=== PATIENT | female | born 1995 | race Caucasian/White ===

== ENCOUNTER 2016-03-31 10:27 | Emergency (ER) | payer SELFPAY ==
[2016-03-31 11:34] LABS: APPEARANCE HAZY (CLEAR); BACTERIA MODERATE /hpf (NONE SEEN); BILIRUBIN NEGATIVE (NEGATIVE); COLOR YELLOW (YELLOW); GLUCOSE NEGATIVE (NEGATIVE); KETONE NEGATIVE (NEGATIVE); LEUKOCYTE ESTERASE TRACE (NEGATIVE); MUCUS <1+ /lpf (NONE SEEN); NITRITE NEGATIVE (NEGATIVE); PROTEIN NEGATIVE (NEGATIVE); UROBILINOGEN NORMAL (NORMAL); WHITE CELLS - URINE RARE /hpf (0-5)
[2016-03-31 11:39] LABS: HCG URINE NEGATIVE (NEGATIVE)
== END 2016-03-31 12:41 | disposition home or self-care (01) ==
LOC: D.ER 10:27
PROVIDERS: Emergency Medicine
DX: N76.0 Acute vaginitis (principal)

== ENCOUNTER 2017-07-25 13:36 | Emergency (ER) | payer OTHER ==
[2017-07-25 14:21] LABS: HCG SERUM NEGATIVE (NEGATIVE)
[2017-07-25 16:15] LABS: UDS - AMPHET POSITIVE QUAL (NEGATIVE); UDS - BARB NEGATIVE QUAL (NEGATIVE); UDS - BENZO POSITIVE QUAL (NEGATIVE); UDS - COCAINE POSITIVE QUAL (NEGATIVE); UDS - OPIATE POSITIVE QUAL (NEGATIVE); UDS - PCP NEGATIVE QUAL (NEGATIVE); UDS - THC POSITIVE QUAL (NEGATIVE)
== END 2017-07-25 16:54 | disposition home or self-care (01) ==
LOC: D.ER 13:36
PROVIDERS: Emergency Medicine; Nurse Practitioner Family
DX: T76.21XA Adult sexual abuse, suspected, initial encounter (principal); F17.200 Nicotine dependence, unspecified, uncomplicated

== ENCOUNTER 2019-01-29 18:47 | Observation (INO) | payer OTHER ==
[~2019-01-29] VITALS: Ht 167.6 cm; Wt 45.9 kg
[2019-01-29 20:12] LABS: CALC OSMOLALITY 269 mosm/kg (275-300); CALCIUM 9.4 mg/dL (8.5-10.1); CHLORIDE - SERUM 100 mmol/L (98-107); CREATININE - SERUM 0.6 mg/dL (0.6-1.3); GLUCOSE 113 mg/dL (74-106); POTASSIUM - SERUM 3.9 mmol/L (3.5-5.1); SODIUM 136 mmol/L (136-145); UREA NITROGEN 5 mg/dL (7-18); eGFR NON AFRICAN AMERICAN > 90 mL/min (90-120)
[2019-01-29 20:16] LABS: HCG SERUM NEGATIVE (NEGATIVE)
[2019-01-29 20:18] LABS: ALBUMIN 3.2 g/dL (3.4-5.0); ALKALINE PHOSPHATASE 89 U/L (46-116); ALT (SGPT) 24 U/L (10-68); BILIRUBIN - TOTAL 1.22 mg/dL (0.2-1.3); PROTEIN - SERUM 6.9 g/dL (6.4-8.2)
[2019-01-29 20:22] LABS: BASOPHILS 0.1 % (0-2); EOSINOPHILS 0.2 % (0-7); HEMATOCRIT 41.5 % (36.0-48.0); HEMOGLOBIN 12.9 g/dL (12-16); IMMATURE GRANULOCYTES 0.1 % (0-5); LYMPHOCYTES 8.5 % (15-50); MCH 29.3 pg (26.0-34.0); MCHC 31.1 g/dL (31.0-37.0); MCV 94.1 fL (80.0-100.0); MEAN PLATELET VOLUME 9.5 fL (7.4-10.4); MONOCYTES 11.8 % (2-11); NEUTROPHILS 79.3 % (40-80); PLATELET COUNT 442 10x3/uL (130-400); RBC 4.41 10x6/uL (4.00-5.40); WBC 13.4 10x3/uL (4.8-10.8)
[2019-01-29 21:00] VITALS: BP 109/71
--- NOTE | 2019-01-29 21:09 | NUR ---
REPORT GIVEN TO JOVI BENNETT.
--- NOTE | 2019-01-29 21:30 | NUR ---
PT RETURNED FROM RADIOLOGY VIA .
[2019-01-29 22:00] VITALS: BP 111/77
--- NOTE | 2019-01-29 23:54 | NUR ---
PT ARRIVED ON UNIT VIA WHEELCHAIR ESCORTED BY ER NURSE. ORIENTED TO ROOM AND CALL LIGHT. IV FLUIDS INFUSING ON ARRIVAL AT 50 ML/HR.
--- NOTE | 2019-01-30 00:20 | NUR ---
GAVE MORPHINE 2 MG AND ZOFRAN 4 MG IVP PER REQUEST FOR SEVERE PAIN IN CHEST AT LEVEL 9/10. WILL MONITOR FOR EFFECTIVENESS.
[2019-01-30 00:24] VITALS: BP 110/70; BMI 16.3
--- NOTE | 2019-01-30 00:38 | NUR ---
ADMISSION ASSESSMENT AND HISTORY COMPLETE.
[2019-01-30 05:12] VITALS: BP 113/69
--- NOTE | 2019-01-30 07:51 | NUR ---
ALERT AND ORIENTED. REQUESTING PRN PAIN MEDICATION. NOT DUE UNTIL 851. EDUCATION PROVIDED. VERBALIZED UNDERSTANDING. LUNGS CLEAR BILATERALLY. HEART SOUNDS S1 AND S2 HEARD IN ALL [place]ZO. BOWEL SOUNDS ACTIVE X 4. IV TO RIGHT AC PATENT WITHOUT REDNESS. DENIES FURTHER NEEDS. BED LOW. CALL SWAN AND PERSONAL ITEMS IN REACH. WILL CONTINUE TO MONITOR.
--- NOTE | 2019-01-30 09:40 | NUR ---
PATIENT COMPLAINING ABOUT IV IN RIGHT AC. STATES "HURTING AND MY HAND IS SWOLLEN." IV FLUSHES AND DRAWS WITHOUT ISSUE. NO SWELLING NOTED TO RIGHT EXTREMETY. INFORMED PATIENT THAT WOULD RESITE IV IF PATIENT WOULD LIKE IV RESITED. STATES "WE CAN LEAVE IT THERE. IT DOESN'T HURT ANYMORE." REASSURED PATIENT THAT IV COULD BE MOVED LATER IF PATIENT DECIDED. VERBALIZED UNDERSTANDING. PATIENT AND BOYFRIEND AT BEDSIDE STATING THAT PRN MORPHINE NOT WORKING TO CONTRAL PATIENT'S PAIN. DR BACILIO VARGAS.
--- NOTE | 2019-01-30 12:00 | NUR ---
STILL NO PAGE BACK FROM DR RIBERA. CALLED SURGERY WHO STATES NOT IN A ROOM AND TRANSFERRED TO RECOVERY. VANDANA IN RECOVERY TOOK MESSAGE AND STATES WILL HAVING DR RIBERA CALL BACK.
[2019-01-30] MEDS ORDERED: KLONOPIN1 MG PO (12:19)
--- NOTE | 2019-01-30 13:32 | NUR ---
SPOKE WITH DR RIBERA TO NOTIFY THAT PATIENT PRN MORPHINE NOT WORKING. STATES CHANGE TO DILAUDID RESIDENT CAREGIVER 0.2MG EVERY 10MIN WITH A 4MG LOCKOUT. WILL SET UP RESIDENT CAREGIVER.
--- NOTE | 2019-01-30 15:15 | NUR ---
EDUCATION PROVIDED ON USE OF SHELL ASSEMBLER. DEMONSTRATED UNDERSTANDING. DENIES QUESTIONS.
--- NOTE | 2019-01-30 15:49 | NUR ---
PATIENT STATES DILAUDID SENIOR ANDROID DEVELOPER "WORKING MUCH BETTER THAN THE MORPHINE." WILL CONTINUE TO MONITOR.
[2019-01-30 16:36] VITALS: BP 123/80
[2019-01-30 21:08] VITALS: BP 107/64
[2019-01-30 21:28] VITALS: Ht 167.6 cm; Wt 45.9 kg
--- NOTE | 2019-01-30 22:55 | NUR ---
A/O WITH NO SIGNS OF ACUTE DISTRESS. IV TO THE RT AC WITH NO REDNESS OR SWELLING. BOYFRIEND AT BEDSIDE. DENIES NO NEEDS AT THIS TIME. CONTINUE PLAN OF CARE.
[2019-01-31 00:39] LABS: UDS - AMPHET POSITIVE QUAL (NEGATIVE); UDS - BARB NEGATIVE QUAL (NEGATIVE); UDS - BENZO NEGATIVE QUAL (NEGATIVE); UDS - COCAINE NEGATIVE QUAL (NEGATIVE); UDS - OPIATE POSITIVE QUAL (NEGATIVE); UDS - PCP NEGATIVE QUAL (NEGATIVE); UDS - THC NEGATIVE QUAL (NEGATIVE)
[2019-01-31 01:05] VITALS: BP 114/70
[2019-01-31 07:06] LABS: ALBUMIN 2.9 g/dL (3.4-5.0); ALKALINE PHOSPHATASE 164 U/L (46-116); CALC OSMOLALITY 273 mosm/kg (275-300); CALCIUM 8.9 mg/dL (8.5-10.1); CARBON DIOXIDE 28.9 mmol/L (21.0-32.0); CHLORIDE - SERUM 103 mmol/L (98-107); CREATININE - SERUM 0.6 mg/dL (0.6-1.3); GLUCOSE 101 mg/dL (74-106); PHOSPHOROUS 3.4 mg/dL (2.5-4.9); POTASSIUM - SERUM 3.9 mmol/L (3.5-5.1); PROTEIN - SERUM 6.7 g/dL (6.4-8.2); SODIUM 138 mmol/L (136-145); UREA NITROGEN 6 mg/dL (7-18); eGFR NON AFRICAN AMERICAN > 90 mL/min (90-120)
[2019-01-31 07:07] LABS: ALT (SGPT) 111 U/L (10-68)
[2019-01-31 07:12] LABS: BASOPHILS 0.2 % (0-2); EOSINOPHILS 1.7 % (0-7); HEMATOCRIT 39.1 % (36.0-48.0); HEMOGLOBIN 12.1 g/dL (12-16); IMMATURE GRANULOCYTES 0.1 % (0-5); LYMPHOCYTES 22.1 % (15-50); MCH 29.1 pg (26.0-34.0); MCHC 30.9 g/dL (31.0-37.0); MEAN PLATELET VOLUME 9.5 fL (7.4-10.4); MONOCYTES 15.2 % (2-11); NEUTROPHILS 60.7 % (40-80); PLATELET COUNT 461 10x3/uL (130-400); RBC 4.16 10x6/uL (4.00-5.40)
[2019-01-31 07:16] LABS: WBC 9.2 10x3/uL (4.8-10.8)
--- NOTE | 2019-01-31 07:43 | NUR ---
ALERT AND ORIENTED. LUNGS CLEAR BILATERALLY. HEART SOUNDS S1 AND S2 HEARD IN ALL LAZO. BOWEL SOUNDS ACTIVE X 4. SKIN INTACT WITHOUT REDNESS. IV TO RIGHT AC PATENT WITHOUT REDNESS. PATIENT STATES WANTS TO DISCHARGE TODAY. CALLED SURGERY WHO STATES DR RIBERA WILL BE IN ABOUT 0815. SURGERY NURSE STATES WILL GIVE DR RIBERA MESSAGE TO CALL FLOOR. PATIENT NOTIFIED AND VERBALIZED UNDERSTANDING. BED LOW. CALL SWAN AND PERSONAL ITEMS IN REACH. WILL CONTINUE TO MONITOR.
[2019-01-31 08:37] VITALS: BP 112/75
--- NOTE | 2019-01-31 12:18 | NUR ---
RESTING IN BED. DENIES NEEDS. WILL CONTINUE TO MONITOR.
[2019-01-31 13:27] VITALS: BP 112/78
--- NOTE | 2019-01-31 15:34 | MORECARE ---
CASE MANAGEMENT DISCHARGE SUMMARY PATIENT: ROBBIE PABON UNIT: [id number] ADM DATE: 01/29/19 AGE: 23 : [birth year] SEX: F ROOM/BED: D.2235 AUTHOR: TONY DU PHYSICIAN: REFERRING PHYSICIAN: ANGELA RIBERA MD DATE OF SERVICE: 01/31/19 Discharge Plan Patient Name: ROBBIE PABON Facility: [facility]:[place] : 1995 Planned Disposition: Home Anticipated Discharge Date: 01/31/19 Discharge Date: Expected LOS: 2 Initial Reviewer: [email or web address] Initial Review Date: 01/31/2019 Generated: 01/31/19 4:34 pm Patient Name: ROBBIE PABON Page 62830 at 1534 All edits/amendments must be made on the electronic document DICTATION DATE: 01/31/19 153 AGRICULTURAL PILOT: BOBBI 01/31/19 153 RPT#: [id number] DC DATE: STATUS: ADM IN [facility] [address] [place] [address] END OF REPORT
--- NOTE | 2019-01-31 15:36 | NUR ---
IV UNHOOKED AND WRAPPED FOR PATIENT TO GET IN SHOWER.
--- NOTE | 2019-01-31 15:43 | MORECARE ---
CASE MANAGEMENT DISCHARGE SUMMARY PATIENT: ROBBIE PABON UNIT: [id number] ADM DATE: 01/29/19 AGE: 23 : [birth year] SEX: F ROOM/BED: D.2235 AUTHOR: FLORIANDOC PHYSICIAN: REFERRING PHYSICIAN: ANGELA RIBERA MD DATE OF SERVICE: 01/31/19 Discharge Plan Patient Name: ROBBIE PABON Facility: [facility]:[place] : 1995 Planned Disposition: Home Anticipated Discharge Date: 01/31/19 Discharge Date: Expected LOS: 2 Initial Reviewer: [email or web address] Initial Review Date: 01/31/2019 Generated: 01/31/19 4:43 pm DCP- Discharge Planning Updated by [email or web address]: Jaqueline Steinberg on 01/31/19 2:[address] Patient Name: ROBBIE PABON Admission Status: ER Accout number: [id number] Admission Date: 01-29-2019 : 1995 Admission Diagnosis: Attending: ANGELA RIBERA Current LOS: 2 Anticipated DC Date: 01-31-2019 Planned Disposition: Home Primary Insurance: [employer] MA[employer]GED MEDICAID Discharge Planning Comments: CM met with patient to complete initial dc planning assessment. CM educated patient on the CM role and verbal consent given by patient to complete assessment. Patient lives at home with her boyfriend and boyfriend's grandmother. At discharge patient plans to return and feels this is a safe discharge. States her boyfriend will take her home. He address is wrong on the face sheet, but is unsure what her address is. States she lives in an apartment building across from [facility].CM discussed availability of home health, rehab services, and medical equipment. Patient denied known discharge needs at this time. CM will continue to follow and will assist as needed with dc plans/needs. Car Unloader Helper: Jaqueline Steinberg DCPIA - Discharge Planning Initial Assessment Updated by [email or web address]: Jaqueline Steinberg on 01/31/19 3:35 pm * Is the patient Alert and Oriented? Yes * How many steps to enter\exit or inside your home? 1 flight/0 * PCP Dr. Cardenas * [facility] [address] * Preadmission Environment Home with Family * ADLs Independent * Equipment None * List name and contact numbers for known caregivers / representatives who currently or will assist patient after discharge: Carlo Ferris - boyfriend - [phone] Alma Caro - boyfriend's mother - [phone] * Verbal permission to speak to the caregivers and representatives has been obtained from the patient. Yes * Community resources currently utilized None * Additional services required to return to the preadmission environment? No * Can the patient safely return to the preadmission environment? Yes * Has this patient been hospitalized within the prior 30 days at any hospital? No Last DP export: 01/31/19 2:34 Patient Name: ROBBIE PABNO Page 35717 at 1543 All edits/amendments must be made on the electronic document DICTATION DATE: 01/31/191542 ALCOHOL LAW ENFORCEMENT AGENT: BOBBI 01/31/191542 RPT#: [id number] DC DATE: STATUS: ADM IN [facility] [address] [place] [address] END OF REPORT
[2019-01-31 16:28] VITALS: BP 113/75
--- NOTE | 2019-01-31 17:24 | NUR ---
PATIENT HOOKED BACK UP TO IV.
--- NOTE | 2019-01-31 18:05 | NUR ---
RESTING IN BED. IV TO RIGHT AC PATENT WITHOUT REDNESS. DENIES NEEDS. BED LOW. CALL SWAN AND PERSONAL ITEMS IN REACH.
[2019-01-31] MEDS ORDERED: HYDROCODON-ACE1 EAC7 PO (19:34)
--- NOTE | 2019-01-31 19:56 | NUR ---
A/O WITH NO SIGNS OF DISTRESS. DISCUSSED DISCHARGE INSTRUCTION. DENIES NO QUESTIONS. D/C IV TO THE RT AC WITH CATH INTACT. ALL OF BELONGINS GATHERED AND TAKEN WITH PT. AMBULATED WITH TECH TO CAR.
[2019-02-01 09:10] LABS: HEPATITIS C ANTIBODY <0.1 S/CO RAT (0.0-0.9)
--- NOTE | 2019-02-01 11:02 | DS ---
PATIENT:ROBBIE PABON :[birth year] MEDICAL RECORD: [id number] DISCHARGE SUMMARY ADMISSION DATE: 01/29/19 DISCHARGE DATE: 01/31/19 PRINCIPAL DIAGNOSES: 1. Chest trauma of uncertain etiology. 2. Fractures in the right chest wall from the 2nd through 5th ribs. 3. Small hemothorax on the right. 4. A 5-mm right upper lobe pulmonary nodule. HOSPITAL COURSE: The patient was admitted through the Emergency Room. She was admitted for pain control. Her pain initially was not controlled; however, when we switched her to a Dilaudid LEAD BURNER SUPERVISOR it was. At the time of dismissal, she had nonlabored breathing. Her pain was controlled. She was dismissed home on [place] 5 mg tablets #20 as well as instructions to use anti-inflammatories. I told her that the chest wall pain would likely last for about 6 weeks. TRANSINT:[id number] Voice Confirmation ID: [id number] DOCUMENT ID: [id number] ANGELA RIBERA MD at 1102 CC: [id number] DICTATION DATE: 01/31/192105 BONE DRIER: 02/01/19 0848 DIS IN 01/31/19 [facility] [address] [place] [address]
--- NOTE | 2019-02-01 16:29 | MORECARE ---
CASE MANAGEMENT DISCHARGE SUMMARY PATIENT: ROBBIE PABON UNIT: [id number] ADM DATE: 01/29/19 AGE: 23 : [birth year] SEX: F ROOM/BED: D.2235 AUTHOR: TONY DU PHYSICIAN: REFERRING PHYSICIAN: ANGELA RIBERA MD DATE OF SERVICE: 02/01/19 Discharge Plan Patient Name: ROBBIE PABON Facility: [facility]:[place] : 1995 Planned Disposition: Home Anticipated Discharge Date: 01/31/19 Discharge Date: 01/31/2019 Expected LOS: 2 Initial Reviewer: [email or web address] Initial Review Date: 01/31/2019 Generated: 02/01/19 5:29 pm DCP- Discharge Planning Updated by [email or web address]: Jaqueline Steinberg on 01/31/19 2:[address] Patient Name: ROBBIE PABON Admission Status: ER Accout number: [id number] Admission Date: 01-29-2019 : 1995 Admission Diagnosis: Attending: ANGELA RIBERA Current LOS: 2 Anticipated DC Date: 01-31-2019 Planned Disposition: Home Primary Insurance: [employer] MANAGED MEDICAID Discharge Planning Comments: CM met with patient to complete initial dc planning assessment. CM educated patient on the CM role and verbal consent given by patient to complete assessment. Patient lives at home with her boyfriend and boyfriend's grandmother. At discharge patient plans to return and feels this is a safe discharge. States her boyfriend will take her home. He address is wrong on the face sheet, but is unsure what her address is. States she lives in an apartment building across from [facility].CM discussed availability of home health, rehab services, and medical equipment. Patient denied known discharge needs at this time. CM will continue to follow and will assist as needed with dc plans/needs. Pulp Refiner Operator: Jaqueline Steinberg DCPIA - Discharge Planning Initial Assessment Updated by [email or web address]: Jaqueline Steinberg on 01/31/19 3:35 pm * Is the patient Alert and Oriented? Yes * How many steps to enter\exit or inside your home? 1 flight/0 * PCP Dr. Cardenas * Pharmacy [facility] on [address] * Preadmission Environment Home with Family * ADLs Independent * Equipment None * List name and contact numbers for known caregivers / representatives who currently or will assist patient after discharge: Carlo Ferris - boyfriend - [phone] Alma Caro - boyfriend's mother - [phone] * Verbal permission to speak to the caregivers and representatives has been obtained from the patient. Yes * Community resources currently utilized None * Additional services required to return to the preadmission environment? No * Can the patient safely return to the preadmission environment? Yes * Has this patient been hospitalized within the prior 30 days at any hospital? No Last DP export: 01/31/19 2:43 Patient Name: ROBBIE PABON Page [id number] at 1629 All edits/amendments must be made on the electronic document DICTATION DATE: 02/01/191628 EDGERMAN: BOBBI 02/01/191628 RPT#: [id number] DC DATE:01/31/19 STATUS: DIS IN [facility] [address] [place] [address] END OF REPORT
== END 2019-01-31 19:40 | disposition home or self-care (01) ==
LOC: D.ER 18:47 → D.MS 23:09 → OBSVTIME 23:09 → D.MS 01-30 11:54 → D.SDCHOLD 01-30 11:54 → D.MS 01-31 19:40
PROVIDERS: Emergency Medicine; ADMIT Surgery; ATTEND Surgery
DX: S27.1XXA Traumatic hemothorax, initial encounter (principal); S22.41XA Multiple fractures of ribs, right side, initial encounter for closed fracture; X58.XXXA Exposure to other specified factors, initial encounter; R91.1 Solitary pulmonary nodule